=== PATIENT | female | born 1995 | race Caucasian/White ===

== ENCOUNTER → 2016-08-04 18:53 | Emergency (ER) | payer OTHER ==
[~2016-08-04 18:53] MED LIST: ADDERALL 15 MG15 M1 PO; ADDERALL PO; AUGMENTIN PO; MOTRIN400 MG PO; ORUDIS75 M1 DOB; PREVACID; VICODIN 5/1 TAB 5/50 DOB; ZOLOFT
== END | disposition left against medical advice (07) ==
LOC: CED 18:53
DX: Z53.21 Procedure and treatment not carried out due to patient leaving prior to being seen by health care provider (principal)

== ENCOUNTER 2016-08-11 15:41 | Emergency (ER) | payer OTHER ==
--- NOTE | ~2016-08-11 | CR63 ---
[facility] A Service of [facility] RADIOLOGY TEXT RESULTS PATIENT: DEVENDRA MCGEE LOCATION: CFTX : [birth year] UNIT #: [id number] AGE: [address]: Carolyn Clarke SEX: F ORDER DR: [id number] [facility] [address] [place], [place] [address] [id number] E MR#: [id number] Acc #: [id number] NAME: DEVENDRA MCGEE : 1995 SEX: F STUDY DATE/TIME: 08/11/2016 16:05 UNIT: [facility] ROOM: STUDY DESCRIPTION: CR Chest 2 View Attending Physician: Carolyn Clarke P.A.-C. Ordering Physician: Carolyn Clarke P.A.-C. Primary Care Physician: Damian Zuñiga M.D. MEDICAL IMAGING REPORT This report is preliminary unless electronic signature is present STUDY PA and lateral chest dated 08/11/2016. COMPARISON 07/12/2015 HISTORY Cough and congestion, sore throat for 2 weeks. FINDINGS PA and lateral views are obtained. The cardiovascular configuration is normal and the lungs are clear. CONCLUSION Normal chest. Dictated by... Tk Lancaster M.D. THIS IS AN ELECTRONICALLY VERIFIED REPORT Tk Lancaster M.D. at 08/13/2016 7:19 AM ALLISON/min TD: 08/11/2016 20:06 JOB #: [id number] MEDICAL IMAGING REPORT Page 1 of 1 COPY
[~2016-08-11 15:41] MED LIST changes: -PREVACID; -ZOLOFT
[2016-08-11 16:12] LABS: URINE SOURCE CLEAN CATCH
[2016-08-11 16:18] LABS: URINE APPEARANCE CLEAR; URINE BILIRUBIN NEG (NEG); URINE BLOOD NEG (NEG); URINE COLOR YELLOW; URINE GLUCOSE NEG (NEG); URINE KETONE TRACE (NEG); URINE LEUKOCYTE ESTERASE TRACE (NEG); URINE NITRATE NEG (NEG); URINE PROTEIN NEG (NEG); URINE SPECIFIC GRAVITY 1.027 (1.003-1.035)
[2016-08-11 16:21] LABS: CULTURE INDICATED? YES; URBCS1 AUWI 0-2 /[HPF] (0-2); URINE BACTERIA AUWI 1+ (NEGATIVE); URINE SQUAMOUS EPITHELIAL CELL OCC /[HPF]
== END 2016-08-11 17:32 | disposition home or self-care (01) ==
LOC: CFTX 15:41
PROVIDERS: Physician Assistant
DX: J02.0 Streptococcal pharyngitis (principal); F41.9 Anxiety disorder, unspecified; F32.9 Major depressive disorder, single episode, unspecified; Z90.49 Acquired absence of other specified parts of digestive tract; F17.210 Nicotine dependence, cigarettes, uncomplicated; Z88.1 Allergy status to other antibiotic agents
CPT/HCPCS: 71020; 81003; 84703; 87086; 87880; 96372; 99283; J0561

== ENCOUNTER 2016-12-27 16:19 | Emergency (ER) | payer OTHER ==
--- NOTE | ~2016-12-27 | CR63 ---
[facility] A Service of [facility] RADIOLOGY TEXT RESULTS PATIENT: DEVENDRA MCGEE LOCATION: SED : [birth year] UNIT #: [id number] AGE: [address]: Princess Louie APRN SEX: F ORDER DR: [id number] [address] [address] [id number] E MR#: [id number] Acc #: [id number] NAME: DEVENDRA MCGEE : 1995 SEX: F STUDY DATE/TIME: 12/27/2016 17:41 UNIT: SED ROOM: STUDY DESCRIPTION: CR Chest 2 View Attending Physician: Princess Louie A.P.R.N. Ordering Physician: Princess Pedro A.P.R.N. Primary Care Physician: Damian Zuñiga M.D. MEDICAL IMAGING REPORT This report is preliminary unless electronic signature is present. EXAM PA and lateral chest DATE 12/27/2016 HISTORY Chest pain, congestion and back pain for 5 days. COMPARISON PA and lateral chest radiograph 08/11/2016 FINDINGS PA and lateral examination of the chest upright shows a good expansion of the parenchyma with a normal distribution of the pulmonary vascularity. There is no indication of congestion, effusion, infiltrate, tumor, or nodular density. The pleural reflections and diaphragmatic contours are normal. The cardiac silhouette and mediastinal anatomy is within normal limits. IMPRESSION Normal chest. Dictated by... Chuyita Andersen M.D. THIS IS AN ELECTRONICALLY VERIFIED REPORT Chuyita Andersen M.D. at 12/29/2016 6:16 AM AZUL/marbella TD: 12/29/2016 00:56 [facility] A Service [facility] RADIOLOGY TEXT RESULTS PATIENT: DEVENDRA MCGEE LOCATION: SED : [birth year] UNIT #: [id number] AGE: [address]: Princess Louie APRN SEX: F ORDER DR: EFRAIN #: [id number] MEDICAL IMAGING REPORT Page 1 of 1
[2016-12-27] MEDS ORDERED: PREVACID (16:41)
[2016-12-27] MEDS ORDERED: ZOLOFT (16:41)
[2016-12-27 17:17] LABS: URINE SOURCE CLEAN CATCH
[2016-12-27 17:19] LABS: URINE APPEARANCE CLEAR; URINE BILIRUBIN NEG (NEG); URINE BLOOD NEG (NEG); URINE COLOR YELLOW; URINE GLUCOSE NEG (NORM); URINE KETONE NEG (NEG); URINE LEUKOCYTE ESTERASE TRACE (NEG); URINE NITRATE NEG (NEG); URINE PROTEIN NEG (NEG); URINE SPECIFIC GRAVITY 1.025 (1.003-1.035); URINE UROBILINOGEN 0.2 MG/DL (NORM)
[2016-12-27 17:21] LABS: MICRO INDICATED? YES
[2016-12-27 17:29] LABS: CULTURE INDICATED? YES; URINE BACTERIA 1+ (NEG); URINE RBC 0-2 /[HPF] (0-2); URINE SQUAMOUS EPITHELIAL CELL MANY /[HPF]
== END 2016-12-27 18:27 | disposition home or self-care (01) ==
LOC: SED 16:19
DX: J06.9 Acute upper respiratory infection, unspecified (principal); K21.9 Gastro-esophageal reflux disease without esophagitis; F41.9 Anxiety disorder, unspecified; Z90.49 Acquired absence of other specified parts of digestive tract; F17.200 Nicotine dependence, unspecified, uncomplicated; Z88.5 Allergy status to narcotic agent; Z88.1 Allergy status to other antibiotic agents
CPT/HCPCS: 71020; 81003; 84703; 87086; 99283